=== PATIENT | female | born 1940 | race Caucasian/White ===

== ENCOUNTER 2024-09-01 16:04 | Emergency (ER) | payer OTHER, SELFPAY ==
[2024-09-01 16:08] VITALS: BP 138/80
[2024-09-01 16:11] VITALS: BMI 20.3
--- NOTE | 2024-09-01 16:16 | ED.GENMED ---
History of Present Illness
General
Chief Complaint: Fall
Source: patient
Exam Limitations: none
Time Seen by Provider: 09/01/24 16:07
Nursing documentation reviewed up to this point in time: agreed with
History of Present Illness
History of Present Illness:
84-year-old female from [facility] brought by EMS. Patient apparently fell out of bed and fall was unwitnessed. Patient does have a history dementia and is unable to give history. She does not recall falling. When asked pt c/o of back
hurting. Patient is not on blood thinners.
Past History
Past History
ED Past Medical History: HTN and Hypercholesterolemia
ED Past Surgical History: None
Social History
Tobacco: Non-smoker
Living: with family
Review of Systems
Review of Systems
Allergies reviewed?: Yes
Unable to obtain full review of systems at this time due to: dementia
All Other Systems: ROS reviewed and negative except as documented in HPI and ROS
Musculoskeletal: Reports back pain
Phy Exam
General Physical Exam
General Presentation: no apparent distress
General Skin: warm and dry
General Habitus: elderly
General Mental: confused
General Hydration: appears well hydrated
Cardiovascular Exam
Cardiovascular Exam: regular rate/rhythm, no murmur and normal peripheral pulses
Pulmonary Exam
Pulmonary Exam: lungs clear and no respiratory distress
Neurological Exam
Neurological Exam: alert and oriented x3
Musculoskeletal Exam
Musculoskeletal Exam: full ROM and other (No obvious head injury on exam moves all extremities upper lower bilaterally with no tenderness discomfort full range of motion to all extremities)
Skin Exam
Skin Exam: normal color and warm/dry
Psychiatric Exam
Psychiatric Exam: normal mood/affect
Course
Orders/Labs/Results
Orders:
Orders
09/01/24 16:05
CT Cervical Spine W/o Iv Contr Urgent
Comment:
Reason For Exam: fall
CT Head W/o Iv Contrast Urgent
Comment:
Reason For Exam: fall
09/01/24 16:17
CR Thoracic Spine 3 Views Urgent
Reason For Exam: trauma
Vital Signs
Initial and Last Documented VS:
Initial Vital Signs
Temp Pulse Resp BP Pulse Ox
97.5 F 66 16 138/80 99
09/01/24 16:08 09/01/24 16:08 09/01/24 16:08 09/01/24 16:08 09/01/24 16:08
Last Documented Vital Signs
Temp Pulse Resp BP Pulse Ox
97.5 F 66 16 138/80 99
09/01/24 16:08 09/01/24 16:08 09/01/24 16:08 09/01/24 16:08 09/01/24 16:08
MDM/Problems Addressed
Differential Diagnosis Includes:
Not limited to intracranial hemorrhage,contusion , fx
MDM/Problems Addressed:
Patient presenting for unwitnessed fall. Patient presents awake alert no acute distress. Full range of motion of all extremities no obvious head injury. CT head and cervical spine were done and negative thoracic spine was negative. Son at
bedside reports patient is at baseline mental status. No acute injuries patient with no complaints safer discharge back to [facility] facility. Dementia
Chronic conditions affecting care:
Dementia
*Radiology
Radiology exam reviewed: radiology read reviewed
*Pulse Oximetry
Patient hypoxic: no
*Critical Care Note
Total Time (30-74mins, 75-104mins- exclusive of procedures): Not Applicable
ED Attending Note
-
Portions of this chart may have been created with voice recognition software.� Occasional wrong word or��sound alike� substitutions may have occurred due to the inherent limitations of voice recognition software.
Discharge Plan
Departure
Patient Disposition: Home (Routine Discharge)
Date of Disposition: 09/01/24
Time of Disposition: 18:08
Patient with high blood pressure during this ER visit?: Yes
Condition: Fair
Covid-19: Not Applicable
Discharge Problem:
Head injury
Instructions: Head Injury in Adults (DC), BLOOD PRESSURE
Prescriptions:
No Action
esomeprazole magnesium [Nexium] 20 MG capsule,delayed release(DR/EC)
20 mg PO DAILY
diltiazem HCl 240 MG capsule,extended release 24hr
240 mg PO DAILY Qty: 30 0RF
magnesium oxide 500 MG tablet
500 mg PO BID Qty: 60 0RF
olmesartan 20 MG tablet
40 mg PO DAILY Qty: 60 0RF
apixaban [Eliquis] 5 MG tablet
5 mg PO BID Qty: 60 0RF
acetaminophen 325 MG tablet
650 mg PO Q4HPRN PRN (Reason: mild pain/GARCIA/temp> 100.4F) Qty: 0 0RF
ipratropium-albuterol 3 ML solution for nebulization
3 ml inhalation R Q4HPRN PRN (Reason: shortness of breath) Qty: 0 0RF
oxycodone 5 MG tablet
5 mg PO Q6HPRN PRN (Reason: MOD-SEVERE PAIN) Qty: 12 0RF
sodium chloride [Saline Nasal] 50 SPRAYS/45 ML aerosol,spray
1 sprays intranasal QIDPRN PRN (Reason: nasal congestion) Qty: 0 0RF
Referrals:
Ori Ferguson MD [Family Provider] -
Activity Restrictions/Additional Instructions:
Patient had a CAT scan done of her head and cervical spine all which were negative x-rays of her back(thoracic ) were negative as well. Patient should be evaluated by family provider in the next several days.
Interventions
Interventions:
*Risk Screen - Suicide Last Done: 09/01/24 16:08
*General Assessment Last Done: 09/01/24 16:08
*Neglect/Abuse Screening Last Done: 09/01/24 16:08
ED- Fall Risk Assessment Last Done: 09/01/24 16:08
*ED COVID-19 Vaccine History Last Done: 09/01/24 16:08
ED-Musculoskeletal Assessment Last Done: 09/01/24 16:08
ED- Neurological Assessment Last Done: 09/01/24 16:08
ED-Skin Assessment Last Done: 09/01/24 16:08
Discharge Date and Time
Print Language: POLISH
[2024-09-01 18:31] VITALS: BP 164/45
[2024-09-01 20:04] VITALS: BP 125/62
== END 2024-09-01 20:07 | disposition home or self-care (01) ==
LOC: EMR 16:04
PROVIDERS: EMERGENCY PHYSICIAN Emergency Medicine; FAMILY PHYSICIAN Family Medicine
DX: S09.90XA Unspecified injury of head, initial encounter (principal); W06.XXXA Fall from bed, initial encounter; I10 Essential (primary) hypertension; E78.00 Pure hypercholesterolemia, unspecified; F03.90 Unspecified dementia, unspecified severity, without behavioral disturbance, psychotic disturbance, mood disturbance, and anxiety
CPT/HCPCS: 99284; 70450; 72072; 72125